=== PATIENT | female | born 1940 | race Caucasian/White ===

== ENCOUNTER 2018-11-13 11:37 | Day surgery (SDC) | payer OTHER, SELFPAY ==
[2018-11-13] MEDS: PROPARACAINE 0.5% OPHTH SOL 2 DROPS EYE-OP (12:48)
[2018-11-13] MEDS: CATARACT EYE COMPOUND (10 DROPS/SYRINGE) 3 DROPS EYE-OP (12:50)
[2018-11-13 13:02] VITALS: BP 144/64; PULSE 60; RESP 15; TEMP 36.4; O2SAT 96; BMI 44.4
--- NOTE | 2018-11-13 13:34 | PM.PREOP ---
Pre-operative Note Interval Note History & Physical reviewed/Exam performed by Physician: Yes Changes to H&P: No
--- NOTE | 2018-11-13 13:37 | PM.PREOP ---
Pre-operative Note Interval Note History & Physical reviewed/Exam performed by Physician: Yes Changes to H&P: No
[2018-11-13] MEDS: TETRACAINE 0.5% OPHTH DROPS 4 ML 2 DROPS EYE-RIGHT (13:50)
[2018-11-13] MEDS: MOXIFLOXACIN OPHTH DROPS 3 ML BOTTLE 2 DROPS INJ (14:10)
[2018-11-13] MEDS: CHONDROIDTIN/SOD HYALURONATE 1.05 ML SYRINGE INTRAOCULA (14:10)
[2018-11-13] MEDS: BALANCED SALT IRRIG SOLN NO.2 500 ML, EPINEPHrine 1 MG IRR (14:11)
[2018-11-13] MEDS: PHENYLEPHRINE/LIDOCAINE VIAL (OR) 0.2 ML EYE-OP (14:11)
[2018-11-13] MEDS: LIDOCAINE 2% INJ SDV 0.5 ML TOP (14:13)
--- NOTE | 2018-11-13 14:30 | PM.OP.1 ---
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 The correct patient, surgical site and lens were confirmed. 0.5 % tetracaine drops were placed in the right eye. The patient was prepped and draped in the typical sterile manner. A lid speculum was placed in the eye. 2% lidocaine was placed on the eye. A paracentesis port was created with a side-port blade. 0.1 mL of 1% preservative free lidocaine with phenylephrine was injected into the anterior chamber. Viscoelastic was injected into the anterior chamber. A 2.6mm keratome was used to create a clear corneal temporal incision. Cystotome and Utrata forceps were used to create a continuous curvilinear capsulorrhexis. Balanced salt solution was used to hydrodissect the nucleus. Phacoemulsification was used to remove the lens. The capsular bag was inflated with viscoelastic. A Herrera ZBOO +10.5D lens was inserted into the capsule. Viscoelastic was removed and the wound hydrated. The wound was found to be leak free and the eye was assessed to be at normal physiologic pressure. 0.1mL Vigamox was injected into the anterior chamber. The lid speculum was removed and the patient left the operating room in excellent condition. Complications: none Condition: stable Disposition: same day surgery
[2018-11-13 14:41] VITALS: BP 165/66; PULSE 58; RESP 16; TEMP 36.2; O2SAT 100
== END 2018-11-13 14:52 ==
LOC: OR 11:44
PROVIDERS: PCP Physician Assistant Medical; Visit Provider Ophthalmology
PROC: (CPT 66984; principal; 2018-11-13 13:30)
DX: H25.11 Age-related nuclear cataract, right eye (principal); I10 Essential (primary) hypertension
CPT/HCPCS: 66984; J0171; J2250; J3010

== ENCOUNTER 2018-11-27 11:25 | Day surgery (SDC) | payer OTHER, SELFPAY ==
[2018-11-27 12:00] VITALS: BMI 44.6
[2018-11-27 12:04] VITALS: BP 150/64; PULSE 66; RESP 16; TEMP 36.6; O2SAT 96
[2018-11-27] MEDS: PROPARACAINE 0.5% OPHTH SOL 2 DROPS EYE-OP (12:05)
[2018-11-27] MEDS: CATARACT EYE COMPOUND (10 DROPS/SYRINGE) 3 DROPS EYE-OP (12:05)
[2018-11-27] MEDS: TETRACAINE 0.5% OPHTH DROPS 4 ML 2 DROPS EYE-LEFT (12:45)
[2018-11-27] MEDS: MOXIFLOXACIN OPHTH DROPS 3 ML BOTTLE 2 DROPS INJ (13:07)
[2018-11-27] MEDS: CHONDROIDTIN/SOD HYALURONATE 1.05 ML SYRINGE INTRAOCULA (13:07)
[2018-11-27] MEDS: PHENYLEPHRINE/LIDOCAINE VIAL (OR) 0.2 ML EYE-OP (13:08)
[2018-11-27] MEDS: BALANCED SALT IRRIG SOLN NO.2 500 ML, EPINEPHrine 1 MG IRR (13:08)
[2018-11-27] MEDS: BALANCED SALT IRRIG SOLN NO.2 15 ML IRR (13:09)
[2018-11-27] MEDS: LIDOCAINE 2% INJ SDV 0.5 ML TOP (13:09)
--- NOTE | 2018-11-27 13:27 | PM.OP.1 ---
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 The correct patient, surgical site and lens were confirmed. 0.5 % tetracaine drops were placed in the left eye. The patient was prepped and draped in the typical sterile manner. A lid speculum was placed in the eye. 2% lidocaine was placed on the eye. A paracentesis port was created with a side-port blade. 0.1 mL of 1% preservative free lidocaine with phenylephrine was injected into the anterior chamber. Viscoelastic was injected into the anterior chamber. A 2.6mm keratome was used to create a clear corneal temporal incision. Cystotome and Utrata forceps were used to create a continuous curvilinear capsulorrhexis. Balanced salt solution was used to hydrodissect the nucleus. Phacoemulsification was used to remove the lens. The capsular bag was inflated with viscoelastic. A Herrera ZBOO +15.0D lens was inserted into the capsule. Viscoelastic was removed and the wound hydrated. The wound was found to be leak free and the eye was assessed to be at normal physiologic pressure. 0.1mL Vigamox was injected into the anterior chamber. The lid speculum was removed and the patient left the operating room in excellent condition. Complications: none Condition: stable Disposition: same day surgery
[2018-11-27 13:50] VITALS: BP 154/67; PULSE 61; RESP 16; TEMP 36; O2SAT 96
== END 2018-11-27 13:47 | disposition home or self-care (01) ==
LOC: OR 11:26
PROVIDERS: PCP Physician Assistant Medical; Visit Provider Ophthalmology
PROC: (CPT 66984; principal; 2018-11-27 13:15)
DX: H25.12 Age-related nuclear cataract, left eye (principal); I10 Essential (primary) hypertension; N28.9 Disorder of kidney and ureter, unspecified
CPT/HCPCS: 66984; J0171; J2250; J3010